=== PATIENT | male | born 1995 ===

== ENCOUNTER 2023-01-11 15:42 | Emergency (ER) | payer OTHER ==
[~2023-01-11] VITALS: Ht 167.6 cm; Wt 61.2 kg
== END 2023-01-11 20:12 | disposition home or self-care (01) ==
LOC: ER 15:42
PROVIDERS: General Practice
DX: J10.1 Influenza due to other identified influenza virus with other respiratory manifestations (principal); D69.6 Thrombocytopenia, unspecified; Z20.822 Contact with and (suspected) exposure to COVID-19